=== PATIENT | male | born 1970 | race Caucasian/White ===

== ENCOUNTER 2022-05-05 09:44 | Emergency (ER) | payer OTHER ==
[~2022-05-05] VITALS: Ht 167.6 cm; Wt 57.6 kg
[2022-05-05 10:11] LABS: BASO % 0.5 % (0.0-1.0); EOS # 0.2 10*3/uL (0.0-0.4); EOS % 1.9 % (1.0-4.0); HEMATOCRIT 46.4 % (42.0-52.0); LYMPH # 2.1 10*3/uL (1.3-4.4); LYMPH % 26.2 % (27.0-41.0); MEAN CELL VOLUME 94.5 fl (80.0-94.0); MEAN CORPUSCULAR HGB 32.4 pg (27.0-31.0); MEAN CORPUSCULAR HGB CONC 34.3 g/dl (33.0-37.0); MEAN PLATELET VOLUME 9.7 fl (9.6-12.3); MONO # 0.6 10*3/uL (0.1-1.0); MONO % 7.7 % (3.0-9.0); NEUT % 63.4 % (47.0-73.0); PLATELET COUNT AUTOMATED 295 10*3/uL (130-400); RED BLOOD COUNT 4.91 10*6/uL (4.50-5.90); RED CELL DISTRI WIDTH 12.9 % (0-14.5); WHITE BLOOD COUNT 7.8 10*3/uL (4.8-10.8)
[2022-05-05 10:22] LABS: ACT PARTIAL THROMBO TIME 28.6 SECONDS (20.0-32.1)
[2022-05-05 10:42] LABS: BUN 13 mg/dl (7-24); CHLORIDE 107 mmol/L (98-107); CREATININE 0.78 mg/dL (0.70-1.30); POTASSIUM 3.9 mmol/L (3.5-5.1); SGOT/AST 17 IU/L (3-35); SGPT/ALT 22 U/L (12-78); SODIUM 138 mmol/L (136-145)
[2022-05-05 10:44] LABS: ALKALINE PHOSPHATASE 70 U/L (45-117); TOTAL PROTEIN 7.4 gm/dL (6.4-8.2)
== END 2022-05-05 10:50 | disposition short-term general hospital (02) ==
LOC: ED 09:44
PROVIDERS: Family Medicine
DX: I21.3 ST elevation (STEMI) myocardial infarction of unspecified site (principal)